=== PATIENT | female | born 1960 | race Caucasian/White ===

== ENCOUNTER 2020-07-26 18:45 | Observation (INO) | payer BC ==
--- NOTE | 2020-07-26 19:05 | ED ---
General Adult HPI - General Chief complaint: Recheck/Abnormal Lab/Rx Stated complaint: SOB Time Seen by Provider: 07/26/20 19:03 Source: patient Mode of arrival: ambulatory Limitations: no limitations - History of Present Illness Initial comments: 6-year-old female with history of heart failure presenting to the emergency department with a chief complaint of abnormal echo cardiogram. Patient states that she has been diagnosed with heart failure about 10 years ago after she contracted influenza. Patient states she was taking carvedilol but has stopped for the last several years. States that currently she is only taking [id number] vitamins and antihistamines. States over the last 9 days she developed dyspnea on exertion but no chest pain or pressure. States she had a chest x-ray and echocardiogram performed as an outpatient. States she was contacted by her primary care physician who advised her to go to the emergency department because she had an ejection fraction less than 20%. She denies any headaches, one sided weakness and paresthesias. She does report crackles, particularly in the morning when she wakes up. She denies any swelling of the legs. - Related Data Home Medications Medication Instructions Recorded Confirmed Calcium 1200mg + Vitamin D3 1 tab PO DAILY 07/26/20 07/26/20 1000units FLUoxetine HCL [PROzac] 20 mg PO DAILY 07/26/20 07/26/20 Fexofenadine/Pseudoephedrine 1 tab PO DAILY 07/26/20 07/26/20 [Anitra-D 12 Hour Tablet] Omeprazole Magnesium [PriLOSEC OTC] 20 mg PO DAILY 07/26/20 07/26/20 Allergies Allergy/AdvReac Type Severity Reaction Status Date / Time sulfamethoxazole Allergy Itching Verified 07/26/20 20:33 [From ] trimethoprim [From ] Allergy Itching Verified 07/26/20 20:33 Review of Systems ROS Statement: Those systems with pertinent positive or pertinent negative responses have been documented in the HPI. ROS Other: All systems not noted in ROS Statement are negative. Past Medical History Past Medical History: Heart Failure History of Any Multi-Drug Resistant Organisms: None Reported Past Surgical History: Orthopedic Surgery Additional Past Surgical History / Comment(s): thyroid Past Psychological History: No Psychological Hx Reported Smoking Status: Never smoker Past Alcohol Use History: Rare Past Drug Use History: None Reported General Exam Limitations: no limitations General appearance: alert, in no apparent distress Head exam: Present: atraumatic, normocephalic, normal inspection Eye exam: Present: normal appearance, PERRL, EOMI Pupils: Present: normal accommodation ENT exam: Present: normal exam, normal oropharynx, mucous membranes moist, TM's normal bilaterally, normal external ear exam Neck exam: Present: normal inspection, full ROM. Absent: tenderness Respiratory exam: Present: normal lung sounds bilaterally. Absent: respiratory distress, wheezes, rales, rhonchi, stridor Cardiovascular Exam: Present: regular rate, normal rhythm, normal heart sounds. Absent: systolic murmur, diastolic murmur GI/Abdominal exam: Present: soft. Absent: distended, tenderness, guarding, rebound Extremities exam: Present: normal inspection, full ROM, normal capillary refill. Absent: tenderness, pedal edema, joint swelling, calf tenderness Back exam: Present: normal inspection, full ROM. Absent: tenderness, CVA tenderness (R), CVA tenderness (L) Neurological exam: Present: alert, oriented X3 Psychiatric exam: Present: normal affect, normal mood. Absent: depressed, agitated Skin exam: Present: warm, dry, intact, normal color Course Vital Signs 07/26/20 07/26/20 18:48 20:41 Temperature 98.2 F Pulse Rate 117 H 107 H Respiratory 18 18 Rate Blood Pressure 115/74 115/85 O2 Sat by Pulse 98 96 Oximetry EKG Findings - EKG Comments: EKG Findings:: Sinus tachycardia, left axis deviation, prolonged QT. Ventricular rate 109, MD 138 and QRS 108, QTC 568. Medical Decision Making - Medical Decision Making 60-year-old female with history of heart failure presenting to the emergency department with a chief complaint of abnormal echocardiogram. I contacted [facility] but was not able to obtain the results of the echocardiogram. We did receive results of the chest x-ray which was incon clusive and there is a suspected pulmonary process without specifications. CBC is unremarkable. CMP reveals hypocalcemia of 7.9 which could explain the QT prolongation. Patient will be started on calcium gluconate. Patient is otherwise well-appearing. Stable vitals. Patient was discussed with who spoke with Dr. Wilson and he would like to have the patient did for telemetry. Patient did have a troponin of 0.025. Patient will be nothing by mouth. [employer] consulted. - Lab Data Result diagrams: 07/26/20 19:30 07/26/20 19:30 Lab Results 07/26/20 07/26/20 07/26/20 Range/Units 19:30 19:30 19:30 WBC 8.1 (3.8-10.6) k/uL RBC 3.89 (3.80-5.40) m/uL Hgb 11.0 L (11.4-16.0) gm/dL Hct 34.1 (34.0-46.0) % MCV 87.8 (80.0-100.0) fL MCH 28.4 (25.0-35.0) pg MCHC 32.4 (31.0-37.0) g/dL RDW 14.5 (11.5-15.5) % Plt Count 322 (150-450) k/uL MPV 8.3 Neutrophils % 62 % Lymphocytes % 29 % Monocytes % 4 % Eosinophils % 3 % Basophils % 1 % Neutrophils # 5.0 (1.3-7.7) k/uL Lymphocytes # 2.4 (1.0-4.8) k/uL Monocytes # 0.4 (0-1.0) k/uL Eosinophils # 0.2 (0-0.7) k/uL Basophils # 0.1 (0-0.2) k/uL Sodium 140 (137-145) mmol/L Potassium 3.5 (3.5-5.1) mmol/L Chloride 105 (98-107) mmol/L Carbon Dioxide 24 (22-30) mmol/L Anion Gap 11 mmol/L BUN 13 (7-17) mg/dL Creatinine 1.00 (0.52-1.04) mg/dL Est GFR (CKD-EPI)AfAm 71 (>60 ml/min/1.73 sqM) Est GFR (CKD-EPI)NonAf 62 (>60 ml/min/1.73 sqM) Glucose 130 H (74-99) mg/dL Calcium 7.9 L (8.4-10.2) mg/dL Magnesium 1.7 (1.6-2.3) mg/dL Total Bilirubin 0.5 (0.2-1.3) mg/dL AST 21 (14-36) U/L ALT 14 (4-34) U/L Alkaline Phosphatase 80 (38-126) U/L Troponin I 0.025 (0.000-0.034) ng/mL NT-Pro-B Natriuret Pep pg/mL Total Protein 7.2 (6.3-8.2) g/dL Albumin 4.0 (3.5-5.0) g/dL 07/26/20 Range/Units 19:30 WBC (3.8-10.6) k/uL RBC (3.80-5.40) m/uL Hgb (11.4-16.0) gm/dL Hct (34.0-46.0) % MCV (80.0-100.0) fL MCH (25.0-35.0) pg MCHC (31.0-37.0) g/dL RDW (11.5-15.5) % Plt Count (150-450) k/uL MPV Neutrophils % % Lymphocytes % % Monocytes % % Eosinophils % % Basophils % % Neutrophils # (1.3-7.7) k/uL Lymphocytes # (1.0-4.8) k/uL Monocytes # (0-1.0) k/uL Eosinophils # (0-0.7) k/uL Basophils # (0-0.2) k/uL Sodium (137-145) mmol/L Potassium (3.5-5.1) mmol/L Chloride (98-107) mmol/L Carbon Dioxide (22-30) mmol/L Anion Gap mmol/L BUN (7-17) mg/dL Creatinine (0.52-1.04) mg/dL Est GFR (CKD-EPI)AfAm (>60 ml/min/1.73 sqM) Est GFR (CKD-EPI)NonAf (>60 ml/min/1.73 sqM) Glucose (74-99) mg/dL Calcium (8.4-10.2) mg/dL Magnesium (1.6-2.3) mg/dL Total Bilirubin (0.2-1.3) mg/dL AST (14-36) U/L ALT (4-34) U/L Alkaline Phosphatase (38-126) U/L Troponin I (0.000-0.034) ng/mL NT-Pro-B Natriuret Pep 4180 pg/mL Total Protein (6.3-8.2) g/dL Albumin (3.5-5.0) g/dL Disposition Clinical Impression: Hypocalcemia, Shortness of breath, Prolonged Q-T interval on ECG Disposition: ADMITTED IP TO THIS HOSP Condition: Stable Is patient prescribed a controlled substance at d/c from ED?: No Time of Disposition: 21:10
[2020-07-26 19:51] LABS: Basophils # (A) 0.1 k/uL (0-0.2); Basophils % (A) 1 %; Eosinophils # (A) 0.2 k/uL (0-0.7); Eosinophils % (A) 3 %; HCT 34.1 % (34.0-46.0); Lymphocytes # (A) 2.4 k/uL (1.0-4.8); Lymphocytes % (A) 29 %; MCH 28.4 pg (25.0-35.0); MCHC 32.4 g/dL (31.0-37.0); MCV 87.8 fL (80.0-100.0); Mean Platelet Volume 8.3; Monocytes # (A) 0.4 k/uL (0-1.0); Monocytes % (A) 4 %; Neutrophils % (A) 62 %; Platelet Count 322 k/uL (150-450); RBC 3.89 m/uL (3.80-5.40); RDW 14.5 % (11.5-15.5); WBC 8.1 k/uL (3.8-10.6)
[2020-07-26 20:00] LABS: Calcium 7.9 mg/dL (8.4-10.2); Magnesium 1.7 mg/dL (1.6-2.3); Potassium 3.5 mmol/L (3.5-5.1); Total Bilirubin 0.5 mg/dL (0.2-1.3); Total Protein 7.2 g/dL (6.3-8.2)
[2020-07-26] MEDS ORDERED: CALCIUM GLUCONATE 1 GM in SODIUM CHLORIDE 0.9% 100 ML IVPB ONE (20:14)
[2020-07-26] MEDS ORDERED: NALOXONE 0.4 MG/ML 1 ML VIAL IV PRN (20:16)
[2020-07-26] MEDS ORDERED: HYDROmorphone 0.5 MG/0.5 ML SYRINGE IVP PRN (20:16)
[2020-07-26] MEDS ORDERED: ACETAMINOPHEN TAB 325 MG TAB PO PRN (20:16)
[2020-07-26] MEDS ORDERED: LORazepam 2 MG/ML INJ IV PRN (20:16)
--- NOTE | 2020-07-26 20:43 | XR ---
EXAMINATION: XR chest 2V DATE AND TIME: 07/26/2020 8:01 PM CLINICAL INDICATION: PHH; Chest Pain TECHNIQUE: PA and lateral COMPARISON: None FINDINGS: There is a subtle fine reticular pattern to appears to overlie the pulmonary vasculature bilaterally. This finding is subtle but can correlate with a clinical diagnosis of mild interstitial phase pulmon katelin edema. The lungs are otherwise well-expanded and clear bilaterally. The pleural spaces are negative. The cardiac silhouette is mildly enlarged. The remainder of the mediastinal silhouette is unremarkabl e. The skeletal structures and soft tissues are negative for acute findings. IMPRESSION: 1. Subtle interstitial radiographic pattern. 2. Mildly enlarged cardiac silhouette.
[2020-07-26] MEDS: SODIUM CHLORIDE 0.9% 1,000 ML IV SCH (20:45)
[2020-07-26 21:09] LABS: Partial Thromboplastin Time 22.2 sec (22.0-30.0); Prothrombin Time 10.5 sec (9.0-12.0)
--- NOTE | 2020-07-26 23:16 | P.HPIM ---
History of Present Illness H&P Date: 07/26/20 Chief Complaint: Acute severe cardiomyopathy, severe mitral regurgitation, s olinda baroneness 60-year-old female one of my office patient with past medical history of ALLERGY, along with GERD and mild osteoporosis who had also mild depression who developed to have significant shortness of breath for the last few weeks for the last 3 weeks apparently patient was diagnosed with cardiomyopathy about 10 years ago after contracted influenza virus she was taking Coreg and then stopped taking medication completely not taking any diuretics are beta rajendra. Patient presented to the office recently complaining of worsening dyspnea and shortness of breath with exertion she had loud murmur as well was referred for an echocardiogram result came back with ejection fraction of 15-20% only with severe mitral regurgitation. Patient is significantly symptomatic with no explained to why he had recurrent cardiomyopathy this time [facility] will be admitted seen cardiology and might need further intervention including transesophageal echocardiogram along with possible heart catheter. Patient also started on diuretics with furosemide along with Aldactone mild dose of lisinopril and back on metoprolol. Review of Systems CONSTITUTIONAL: Well-developed no acute respiratory distress. EYES: No icterus sclerae, no conjunctivitis. EARS, NOSE, MOUTH, THROAT, and FACE: No sore throat, lymphadenopathy, carotid bruits or deformity. RESPIRATORY: Mild dyspnea and shortness of breath with exertion. CARDIOVASCULAR: No CP, positive palpitation positive PND orthopnea no angina. GASTROINTESTINAL: No Abd pain, Nausea or vomiting, no Diarrhea or constipation, No GI Bleed, no distention or masses. GENITOURINARY: Negative for Hematuria or UTI, no kidney stones. INTEGUMENT/BREAST: Negative for any muscular injury with mild osteoarthritis.. HEMATOLOGIC/LYMPHATIC: Negative for bleed or purpura. MUSCULOSKELTAL: Negative for Myalgia or arthralgia. Slight edema NEURLOGICAL: No LOC, Sz or syncope, blurred vision dizziness or abnormality.. BEHAVIORAL/PSYCH: Negative. ENDOCRINE: Negative. Past Medical History Past Medical History: Heart Failure History of Any Multi-Drug Resistant Organisms: None Reported Past Surgical History: Orthopedic Surgery Additional Past Surgical History / Comment(s): thyroid Past Psychological History: No Psychological Hx Reported Smoking Status: Never smoker Past Alcohol Use History: Rare Past Drug Use History: None Reported Medications and Allergies Home Medications Medication Instructions Recorded Confirmed Type Calcium 1200mg + Vitamin D3 1 tab PO DAILY 07/26/20 07/26/20 History 1000units FLUoxetine HCL [PROzac] 20 mg PO DAILY 07/26/20 07/26/20 History Fexofenadine/Pseudoephedrine 1 tab PO DAILY 07/26/20 07/26/20 History [Anitra-D 12 Hour Tablet] Omeprazole Magnesium [PriLOSEC OTC] 20 mg PO DAILY 07/26/20 07/26/20 History Allergies Allergy/AdvReac Type Severity Reaction Status Date / Time sulfamethoxazole Allergy Itching Verified 07/26/20 20:33 [From ] trimethoprim [From ] Allergy Itching Verified 07/26/20 20:33 Physical Exam Vitals: Vital Signs Temp Pulse Resp BP Pulse Ox 07/26/20 20:41 107 H 18 115/85 96 07/26/20 18:48 98.2 F 117 H 18 115/74 98 Intake and Output 07/26/20 07/26/20 07/26/20 06:59 14:59 22:59 Other: Weight 69.4 kg General Appearance: Alert, cooperative, no distress, appears stated age. Neck HEENT: Supple, no lymphadenopathy, no thyroid enlargement, no carotid bruits. Lungs: Clear to auscultation without crackles or wheezes no rhonchi, no deformity. Chest Wall: Chest wall normal expansion with deep inspiration no tenderness and no deformity was found on exam, no costochondral pain or discomfort. Heart: IRRegular rate and rhythm, S1, S2 normal, without murmur heard in the attacks along with the left second coastal space. Back: Symmetric, no curvature, ROM normal, no CVA tenderness. Abdomen: Soft, non-tender, bowel sounds active all four quadrants, no masses, no organomegaly. Extremities: Extremities normal, atraumatic, no cyanosis or edema. Pulses: 2+ and symmetric. Skin: Skin color, texture, tugor normal, no rashes or lesions. Neurologic: Alert oriented x3 cranial nerves II through XII intact, no motor deficit, no abnormal balance or gait. Results CBC & Chem 7: 07/26/20 19:30 07/26/20 19:30 Labs: Abnormal Lab Results - Last 24 Hours (Table) 07/26/20 07/26/20 Range/Units 19:30 19:30 Hgb 11.0 L (11.4-16.0) gm/dL Glucose 130 H (74-99) mg/dL Calcium 7.9 L (8.4-10.2) mg/dL Thrombosis Risk Factor Assmnt - DVT/VTE Prophylaxis DVT/VTE Prophylaxis: Pharmacologic Prophylaxis ordered, Mechanical Prophylaxis ordered Assessment and Plan Assessment: 1 acute possible nonischemic severe cardiopathy: Etiology is not clear, patient had history of cardiomyopathy over 10 years ago was related to viral infection post influenza exposure. Patient has been off all treatment for the last few years successfully with no major abnormality until relapse few weeks ago de veloped to have significant shortness of breath with minimum exertion along with mild edema according to patient that happened shortly after she stumbled and had a fall without syncope traumatize the right side of her chest wall area. Also patient had no exposure to Covid. 2 severe valvular heart disease: Not a clear whether patient had rupture mitral valve Chordae, patient might benefit from going for transesophageal echocardiogram for better assessment of the valve as well. 3 mild tachycardia: Patient will benefit from beta rajendra will be on metoprolol 12.5 g twice a day titrate dose as needed. 4 hyperglycemia: Check with sliding scales coverage and be done. 5 severe dyspnea and shortness of breath: Most likely secondary to cardiomyopathy and valvular heart disease. 6 GI prophylaxis: Patient will be on Pepcid 20 mg daily. 7 DVT prophylaxis: Patient be on Lovenox 40 mg subcutaneous daily. CODE STATUS: Full code. Admit patient to the inpatient status for more than 2 night stay.
[2020-07-26] MEDS: METOPROLOL TARTRATE 12.5 MG TAB PO SCH (23:32)
[2020-07-27] MEDS ORDERED: FUROSEMIDE 20 MG TAB PO SCH (09:00)
[2020-07-27] MEDS: METOPROLOL TARTRATE 12.5 MG TAB PO SCH ×2 (09:53→21:25)
[2020-07-27] MEDS: ENOXAPARIN 40 MG/0.4 ML SYRINGE SQ SCH (09:53)
[2020-07-27] MEDS: SPIRONOLACTONE 25 MG TAB PO SCH (09:53)
[2020-07-27] MEDS: FLUoxetine HCL 20 MG CAP PO SCH (09:53)
[2020-07-27] MEDS: lisinopriL 5 MG TAB PO SCH (09:55)
[2020-07-27] MEDS: PANTOPRAZOLE 40 MG TABLET PO SCH (09:55)
[2020-07-27] MEDS ORDERED: FUROSEMIDE 10 MG/ML 2 ML VIAL IV ONE (10:33)
[2020-07-27] MEDS ORDERED: ASPIRIN 325 MG TAB PO STA (10:35)
[2020-07-27] MEDS ORDERED: ATORVASTATIN 80 MG TAB PO STA (10:35)
[2020-07-27] MEDS ORDERED: SODIUM CHLORIDE 0.9% 1,000 ML in EMPTY BAG 1 BAG IV ONE (10:35)
[2020-07-27] MEDS ORDERED: NITROGLYCERIN SL TABS 0.4 MG TAB SUBLINGUAL PRN (10:35)
[2020-07-27] MEDS ORDERED: VERAPAMIL 2.5 MG/ML 2 ML AMP ONE (11:12)
[2020-07-27] MEDS ORDERED: HEPARIN SODIUM 1,000 UN/ML (10ML VL) ONE (11:28)
--- NOTE | 2020-07-27 11:32 | ECHOF ---
Referral Reason:lv ands mitral valve MEASUREMENTS -------- HEIGHT: 157.5 cm WEIGHT: 69.4 kg BP: 109/82 RVIDd: 3.3 cm (< 3.3) IVSd: 1.2 cm (0.6 - 1.1) LVIDd: 6.1 cm (3.9 - 5.3) LVPWd: 1.2 cm (0.6 - 1.1) IVSs: 1.2 cm LVIDs: 5.6 cm LVPWs: 1.5 cm LAESV Index (A-L): 27.68 ml/m Ao Diam: 3.0 cm (2.0 - 3.7) AV Cusp: 2.0 cm (1.5 - 2.6) MV EXCURSION: 12.842 mm (> 18.000) MV EF SLOPE: 33 mm/s (70 - 150) EPSS: 2.8 cm RAP: 20.00 mmHg RVSP: 57.66 mmHg FINDINGS -------- Sinus rhythm. This was a technically adequate study. Limited Study The left ventricle is moderately dilated. There is mild concentric left ventricular hypertrophy. There is severe global hypokinesis of LV . Overall left ventricular systolic function is severely i mpaired with, an EF < 20%. [id number] mitral regurgitation is present. Moderate to severe tricuspid regurgitation present. There is moderate to severe pulmonary hypertens ion. The right ventricular systolic pressure, as measured by Doppler, is 57.66mmHg. The aortic root size is normal. The inferior vena cava is dilated with poor inspiratory collapse which is consistent with estimated r ight atrial pressure of 20 mmHg. CONCLUSIONS -------- 1. The left ventricle is moderately dilated. 2. There is mild concentric left ventricular hypertrophy. 3. There is severe global hypokinesis of LV . 4. Overall left ventricular systolic function is severely impaired with, an EF < 20%. 5. Ugrhoxla-mu-fjysdv mitral regurgitation is present. 6. Moderate to severe tricuspid regurgitation present. 7. There is moderate to severe pulmonary hypertension. 8. The right ventricular systolic pressure, as measured by Doppler, is 57.66mmHg. 9. The inferior vena cava is dilated with poor inspiratory collapse which is consistent with estimate d right atrial pressure of 20 mmHg. COMPUTER SYSTEM SPECIALIST: Jesenia Mcguire [facility] [[email or web address]]
[2020-07-27] MEDS ORDERED: ASPIRIN 325 MG TAB ONE (11:34)
[2020-07-27] MEDS ORDERED: ASPIRIN 325 MG TAB PO ONE (11:36)
[2020-07-27] MEDS ORDERED: IV FLUID CONTINUATION 950 ML IV ONE (11:36)
[2020-07-27] MEDS: MIDAZOLAM 2 MG/2 ML VIAL IVP ONE ×2 (11:37→11:42)
[2020-07-27] MEDS ORDERED: LIDOCAINE 1% INJ 10MG/ML (20 ML MDV) SQ ONE ×2 (11:38)
[2020-07-27] MEDS: VERAPAMIL SYRINGE (5 MG/10 ML) INTRAARTER ONE ×2 (11:41→11:53)
[2020-07-27] MEDS ORDERED: FUROSEMIDE 10 MG/ML 4 ML VIAL ONE (11:46)
[2020-07-27] MEDS ORDERED: FUROSEMIDE 10 MG/ML 4 ML VIAL IVP ONE (11:47)
[2020-07-27] MEDS ORDERED: IOPAMIDOL-370 125ML BTL INJ ONE (11:53)
--- NOTE | 2020-07-27 14:09 | P.CRDCN ---
History of Present Illness History of present illness: HISTORY OF PRESENTING ILLNESS This is a pleasant 60-year-old female past medical history significant for viral cardiomyopathy in 2007 according to the patient returned to normal in 2017. She does not follow regularly the office with a tourist escort. She last saw Dr. Robin in 2017. At that time she had an echocardiogram that revealed preserved LV systolic function with ejection fraction 55%, mitral valve was normal with mild regurgitation. At that time she was on Coreg and lisinopril she has since discontinued. We have been asked to see in consultation for heart failure. She states for the previous 9-10 days she has been noticing increased shortness of breath and some exertional chest discomfort. More specifically at night when she lays down to go to sleep is when she notices she is short of breath and she feels like she is "drowning "she was sent for an outpatient echocardiogram and advice of her PCP yesterday revealing severely impaired LV systolic function with severe mitral regurgitation. Repeat limited study today reveals severely impaired and dilated LV with ejection fraction less than 20%, moderate to severe mitral regurgitation, moderate to severe tricuspid regurgitation and moderate to severe pulmonary hypertension with RVSP of 57 mmHg. DIAGNOSTICS EKG reveals sinus tachycardia heart rate of 109, biatrial enlargement, left axis deviation, T wave inversions in the high lateral leads and flat T waves inferiorly. Chest xray indicates subtle mild interstitial phase pulmonary edema. Laboratory reviewed, CBC unremarkable, sodium 140, potassium 3.5, creatinine 1, magnesium 1.7, troponin negative 2, NT proBNP 4180. She takes no daily cardiac medications. REVIEW OF SYSTEMS At the time of my exam: CONSTITUTIONAL: Denies fever or chills. CARDIOVASCULAR: Complains of orthopnea and shortness of breath. Denies chest pain, PND or palpitations. RESPIRATORY: Denies cough. GASTROINTESTINAL: Denies abdominal pain, diarrhea, constipation, nausea or vomiting. MUSCULOSKELETAL: Denies myalgias. NEUROLOGIC: Denies numbness, tingling or weakness. ENDOCRINE: Denies fatigue, weight change, polydipsia or polyurina. GENITOURINARY: Denies burning, hematuria or urgency with micturation. HEMATOLOGIC: Denies history of anemia or bleeding. PHYSICAL EXAMINATION Blood pressure 109/82 heart rate 85 afebrile and maintaining oxygen saturation on room air. CONSTITUTIONAL: No apparent distress. HEENT: Head is normocephalic. Pupils are equal, round. Sclerae anicteric. Mucous membranes of the mouth are moist. No JVD. No carotid bruit. CHEST EXAMINATION: Lungs are clear to auscultation. No chest wall tenderness is noted on palpation or with deep breathing. HEART EXAMINATION: Regular rate and rhythm. S1, S2 heard. Soft systolic ejection murmur at the apex, no gallops or rub. ABDOMEN: Soft, nontender. Positive bowel sounds. EXTREMITIES: 2+ peripheral pulses, no lower extremity edema and no calf tenderness. NEUROLOGIC EXAMINATION: Patient is awake, alert and oriented x3. 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 I have discussed the risks, benefits and alternative therapies for the above-mentioned procedure and for both sedation/analgesia as well as necessary blood product administration, if indicated, as they pertain to this patient. The patient has indicated understanding and acceptance of the risks and procedures discussed. Questions have been answered appropriately and she is agreeable to move forward with the above-stated procedures. Give 1 dose of Lasix IV 20 mg now and continue 3 times a day. Agree with Aldactone, Lopressor and lisinopril as ordered by the PCP. Check viral titers. Further recommendations to follow based upon clinical course. Thank you kindly for this consultation. Nurse Practitioner note has been reviewed, I agree with a documented findings and plan of care. Patient was seen and examined. Past Medical History Past Medical History: Heart Failure History of Any Multi-Drug Resistant Organisms: None Reported Past Surgical History: Orthopedic Surgery Additional Past Surgical History / Comment(s): thyroid Past Psychological History: No Psychological Hx Reported Smoking Status: Never smoker Past Alcohol Use History: Rare Past Drug Use History: None Reported Medications and Allergies Home Medications Medication Instructions Recorded Confirmed Type Calcium 1200mg + Vitamin D3 1 tab PO DAILY 07/26/20 07/26/20 History 1000units FLUoxetine HCL [PROzac] 20 mg PO DAILY 07/26/20 07/26/20 History Fexofenadine/Pseudoephedrine 1 tab PO DAILY 07/26/20 07/26/20 History [Anitra-D 12 Hour Tablet] Omeprazole Magnesium [PriLOSEC OTC] 20 mg PO DAILY 07/26/20 07/26/20 History Allergies Allergy/AdvReac Type Severity Reaction Status Date / Time sulfamethoxazole Allergy Itching Verified 07/26/20 20:33 [From ] trimethoprim [From ] Allergy Itching Verified 07/26/20 20:33 Physical Exam Vitals: Vital Signs Temp Pulse Resp BP Pulse Ox 07/27/20 05:41 98.6 F 85 18 109/82 95 07/27/20 02:59 98.7 F 91 18 113/78 96 07/27/20 02:00 18 07/26/20 23:30 105 H 18 125/91 98 07/26/20 20:41 107 H 18 115/85 96 07/26/20 18:48 98.2 F 117 H 18 115/74 98 Intake and Output 07/26/20 07/27/20 07/27/20 22:59 06:59 14:59 Other: Weight 69.4 kg Results 07/26/20 19:30 07/26/20 19:30 Cardiac Enzymes 07/26/20 07/26/20 07/27/20 Range/Units 19:30 19:30 00:22 AST 21 (14-36) U/L Troponin I 0.025 0.020 (0.000-0.034) ng/mL Coagulation 07/26/20 Range/Units 20:45 PT 10.5 (9.0-12.0) sec APTT 22.2 (22.0-30.0) sec CBC 07/26/20 Range/Units 19:30 WBC 8.1 (3.8-10.6) k/uL RBC 3.89 (3.80-5.40) m/uL Hgb 11.0 L (11.4-16.0) gm/dL Hct 34.1 (34.0-46.0) % Plt Count 322 (150-450) k/uL Comprehensive Metabolic Panel 07/26/20 Range/Units 19:30 Sodium 140 (137-145) mmol/L Potassium 3.5 (3.5-5.1) mmol/L Chloride 105 (98-107) mmol/L Carbon Dioxide 24 (22-30) mmol/L BUN 13 (7-17) mg/dL Creatinine 1.00 (0.52-1.04) mg/dL Glucose 130 H (74-99) mg/dL Calcium 7.9 L (8.4-10.2) mg/dL AST 21 (14-36) U/L ALT 14 (4-34) U/L Alkaline Phosphatase 80 (38-126) U/L Total Protein 7.2 (6.3-8.2) g/dL Albumin 4.0 (3.5-5.0) g/dL Current Medications Generic Name Dose Route Start Last Admin Trade Name Freq PRN Reason Stop Dose Admin Acetaminophen 650 mg 07/26/20 20:16 Acetaminophen Tab 325 Mg Tab PO Q6HR PRN Mild Pain or Fever > 100.5 Enoxaparin Sodium 40 mg 07/27/20 09:00 Enoxaparin 40 Mg/0.4 Ml Syringe SQ DAILY NATALIA Fluoxetine HCl 20 mg 07/27/20 09:00 Fluoxetine Hcl 20 Mg Cap PO DAILY NATALIA Furosemide 20 mg 07/27/20 09:00 Furosemide 20 Mg Tab PO DAILY NATALIA Hydromorphone HCl 0.5 mg 07/26/20 20:16 Hydromorphone 0.5 Mg/0.5 Ml Syringe IVP Q3HR PRN Moderate Pain Sodium Chloride 1,000 mls @ 20 mls/hr 07/26/20 20:30 07/26/20 20:45 Saline 0.9% IV 20 mls/hr .Q24H NATALIA Administration Lisinopril 5 mg 07/27/20 09:00 Lisinopril 5 Mg Tab PO DAILY NATALIA Lorazepam 0.5 mg 07/26/20 20:16 Lorazepam 2 Mg/Ml Inj IV Q6HR PRN Anxiety Metoprolol Tartrate 12.5 mg 07/26/20 22:45 07/26/20 23:32 Metoprolol Tartrate 12.5 Mg Tab PO 12.5 mg BID NATALIA Administration Naloxone HCl 0.2 mg 07/26/20 20:16 Naloxone 0.4 Mg/Ml 1 Ml Vial IV Q2M PRN Opioid Reversal Pantoprazole Sodium 40 mg 07/27/20 09:00 Pantoprazole 40 Mg Tablet PO DAILY NATALIA Spironolactone 12.5 mg 07/27/20 09:00 Spironolactone 25 Mg Tab PO DAILY NATALIA Intake and Output 07/26/20 07/27/20 07/27/20 22:59 06:59 14:59 Other: Weight 69.4 kg 07/26/20 19:30 07/26/20 19:30
--- NOTE | 2020-07-27 14:15 | P.PN ---
Subjective Progress Note Date: 07/27/20 HISTORY OF PRESENT ILLNESS 60-year-old female one of my office patient with past medical history of ALLERGY, along with GERD and mild osteoporosis who had also mild depression who developed to have significant shortness of breath for the last few weeks for the last 3 weeks apparently patient was diagnosed with cardiomyopathy about 10 years ago after contracted influenza virus she was taking Coreg and then stopped taking medication completely not taking any diuretics are beta rajendra. Patient presented to the office recently complaining of worsening dyspnea and shortness of breath with exertion she had loud murmur as well was referred for an echocardiogram result came back with ejection fraction of 15-20% only with severe mitral regurgitation. Patient is significantly symptomatic with no explained to why he had recurrent cardiomyopathy this time [facility] will be admitted seen cardiology and might need further intervention including transesophageal echocardiogram along with possible heart catheter. Patient also started on diuretics with furosemide along with Aldactone mild dose of lisinopril and back on metoprolol. 07/27: Limited echocardiogram performed which revealed EF of less than 20%, mild concentric left ventricular hypertrophy, moderate to severe mitral regurgitation, moderate to severe tricuspid regurgitation, severe pulmonary hypertension. Cardiology evaluated the patient and performed heart catheterization that showed no significant coronary artery disease. Patient has been afebrile, heart rate 85, blood pressure 109/82, pulse ox 95% on room air.: 19 was negative. Repeat troponin 0.020. Patient was started on Lasix 20 mg IV every 8 hours by cardiology. Anticipate monitoring patient overnight and possible discharge in the next 24-48 hours. REVIEW OF SYSTEMS CONSTITUTIONAL: Well-developed no acute respiratory distress. EYES: No icterus sclerae, no conjunctivitis. EARS, NOSE, MOUTH, THROAT, and FACE: No sore throat, lymphadenopathy, carotid bruits or deformity. RESPIRATORY: Mild dyspnea with exertion. Denies shortness of breath at rest. CARDIOVASCULAR: No CP, positive palpitation positive PND orthopnea no angina. GASTROINTESTINAL: No Abd pain, Nausea or vomiting, no Diarrhea or constipation, No GI Bleed, no distention or masses. GENITOURINARY: Negative for Hematuria or UTI, no kidney stones. INTEGUMENT/BREAST: Negative for any muscular injury with mild osteoarthritis.. HEMATOLOGIC/LYMPHATIC: Negative for bleed or purpura. MUSCULOSKELTAL: Negative for Myalgia or arthralgia. Slight edema NEURLOGICAL: No LOC, Sz or syncope, blurred vision dizziness or abnormality.. BEHAVIORAL/PSYCH: Negative. ENDOCRINE: Negative. PHYSICAL EXAMINATION General Appearance: Alert, cooperative, no distress, appears stated age. Patient resting comfortably in bed. No acute distress noted. Neck HEENT: Supple, no lymphadenopathy, no thyroid enlargement, no carotid bruits. Lungs: Clear to auscultation without crackles or wheezes no rhonchi, no deformity. Chest Wall: Chest wall normal expansion with deep inspiration no tenderness and no deformity was found on exam, no costochondral pain or discomfort. Heart: IRRegular rate and rhythm, S1, S2 normal, without murmur heard in the attacks along with the left second coastal space. Back: Symmetric, no curvature, ROM normal, no CVA tenderness. Abdomen: Soft, non-tender, bowel sounds active all four quadrants, no masses, no organomegaly. Extremities: Extremities normal, atraumatic, no cyanosis or edema. Pulses: 2+ and symmetric. Skin: Skin color, texture, tugor normal, no rashes or lesions. Neurologic: Alert oriented x3 cranial nerves II through XII intact, no motor deficit, no abnormal balance or gait. 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 Patient has been off all treatment for the last few years successfully with no major abnormality until relapse few weeks ago developed to have significant shortness of breath with minimum exertion along with mild edema according to patient that happened shortly after she stumbled and had a fall without syncope traumatize the right side of her chest wall area. Also patient had no exposure to Covid. Heart catheterization reported with no significant coronary artery disease. Continue Lasix 20 mg IV every 8 hours, Aldactone 12.5 mg daily, Lopressor 12.5 mg twice daily. 2 severe valvular heart disease. Rupture mitral valve Chordae has been ruled out by cardiology. 3 mild tachycardia: Patient will benefit from beta rajendra will be on metoprolol 12.5 g twice a day titrate dose as needed. 4 hyperglycemia: Check with sliding scales coverage and be done. 5 severe dyspnea and shortness of breath: Most likely secondary to car diomyopathy and valvular heart disease. 6 GI prophylaxis: Patient will be on Pepcid 20 mg daily. 7 DVT prophylaxis: Patient be on Lovenox 40 mg subcutaneous daily. CODE STATUS: Full code. DISCHARGE PLAN HOME in the next 24-48 hours. Impression and plan of care have been directed as dictated by the signing physician. Patricia Milligan nurse practitioner acting as scribe for signing physician. Objective - Vital Signs Vital signs: Vital Signs Temp 98.6 F 07/27/20 05:41 Pulse 85 07/27/20 05:41 Resp 18 07/27/20 05:41 BP 109/82 07/27/20 05:41 Pulse Ox 95 07/27/20 05:41 Intake & Output 07/26/20 07/27/20 07/27/20 18:59 06:59 18:59 Weight 69.4 kg - Labs CBC & Chem 7: 07/26/20 19:30 07/26/20 19:30 Labs: Abnormal Lab Results - Last 24 Hours (Table) 07/26/20 07/26/20 Range/Units 19:30 19:30 Hgb 11.0 L (11.4-16.0) gm/dL Glucose 130 H (74-99) mg/dL Calcium 7.9 L (8.4-10.2) mg/dL
[2020-07-27] MEDS ORDERED: fentaNYL (PF) 50 MCG/ML 2 ML AMP ONE (15:25)
[2020-07-27] MEDS ORDERED: IV FLUID CONTINUATION 1,000 ML IV ONE (15:28)
[2020-07-27] MEDS ORDERED: BENZOCAINE SPRAY 1 CAN TOPICAL ONE (15:44)
[2020-07-27] MEDS ORDERED: fentaNYL (PF) 50 MCG/ML 2 ML AMP IV ONE ×3 (15:44)
[2020-07-27] MEDS ORDERED: MIDAZOLAM 2 MG/2 ML VIAL IV ONE ×5 (15:44→15:48)
--- NOTE | 2020-07-27 15:59 | CC ---
CARDIAC CATHETERIZATION REPORT DATE OF SERVICE: 07/27/2020 PROCEDURE: Left heart catheterization and coronary angiography. PERFORMED BY: Dr. Aleisha Rhodes. Moderate conscious sedation time was 17 minutes. Patient was administered Versed. Oxygen saturation, hemodynamics and EKG were monitored closely. CLINICAL INFORMATION: Mrs. Jocelyn Solis is a 60-year-old lady, a patient of Dr. Reardon. She was diagnosed with a probable cardiomyopathy more than 10 years ago and at that time she was placed on appropriate medications, but apparently her LV function improved. This is information from the patient not verified. She came to see Dr. Reardon with complaints of increasing shortness of breath of nearly 10 day's duration. Symptoms included exertion, shortness of breath even with mild day-to-day activity. Echo revealed ejection fraction of less than 20% with increased LV size and global decrease in contractility with severe mitral regurgitation, but no structural abnormality of the mitral valve on a transthoracic echo. I recommended coronary angiography to rule out obstructive CAD and also a transesophageal echo to look for any mitral valve abnormality structurally. Discussed with the patient at length. Explained her the rationale, risks, benefits, and options. The patient understood all details and wished to proceed with the procedure. PROCEDURE NOTE: Under local anesthesia and strict aseptic precautions a 6-Yakut introducer was placed in the right radial artery. Using a JL3.5 and JR4 catheters, I performed coronary angiography and checked LV pressures with the same right catheter but did not do an LV gram. The sheath was then taken out and TR band applied as per protocol with a saturation the fingers of the hand of 92%. Same as baseline. The patient tolerated procedure well without complication. Results were discussed with the patient as well as her son, Jose D by phone. CARDIAC CATHETERIZATION FINDINGS: Left ventricular end-diastolic pressure was about 24 mmHg without any gradient across the aortic valve. CORONARY ANGIOGRAPHY FINDINGS: RIGHT CORONARY ARTERY: Large dominant vessel. No significant disease distally bifurcates into a large PDA and a good-sized PLV. No significant disease only minor irregularities noted. LEFT MAIN CORONARY ARTERY: Short patent disease-free vessel that bifurcates into LAD and circumflex. LEFT ANTERIOR DESCENDING CORONARY ARTERY: Good caliber vessel, extends along the anterior wall, gives off septal and diagonal branches. No significant disease. Distal 1/4 is diffusely diseased. LEFT POSTERIOR CIRCUMFLEX CORONARY ARTERY: Nondominant vessel gives off 2 obtuse marginal branches, has minor irregularities, no significant disease. LEFT VENTRICULOGRAM: Left ventriculogram was not performed. FINAL IMPRESSION: This patient has a right dominant system. Elevated filling pressures. No gradient across the aortic valve and no significant obstructive CAD. RECOMMENDATIONS: Findings were discussed with the patient and her son. We will optimize her heart failure management. I will also obtain a transesophageal echo today to look at the mitral valve structurally to explain for mitral regurgitation. The patient will have the procedure performed later on today. MMODL / IJN: [id number] /
--- NOTE | 2020-07-27 17:39 | P.TEE ---
Description of Procedure(s): Procedure performed: Transesophageal Echocardiogram with color flow doppler, pulsed wave doppler and continuous wave doppler, moderate conscious sedation Moderate conscious sedation: Moderate conscious sedation was supplied with direct supervision of myself using Versed and Fentanyl. Complications: none Indications: Moderate to severe mitral regurgitation History: Patient is a pleasant 60-year-old female with a history of prior nonischemic cardiomyopathy with recovered ejection fraction who has been having dyspnea on exertion over the last 10 days and had an echocardiogram by her PCP that showed severely decreased systolic function, ejection fraction less than 20% and moderate to severe mitral regurgitation. Due to concern of moderate to severe mitral regurgitation, recommendation was for a TINY. PROCEDURE: After the risks, benefits and alternatives of the above mentioned procedure was explained in detail with the patient, informed consent was obtained. Patient was brought to the lab in a fasting state. Patient was given IV Versed and Fentanyl for sedation. The throat was sprayed with Hurricane to anesthetize the throat. A lubricated Omni probe was then introduced into the esophagus and stomach and multiple views were obtained. 2D echo with color flow doppler, pulsed wave doppler and continuous wave doppler was utilized. Agitated saline bubbles were injected to assess for any intra-atrial shunt. The probe was then removed. Patient tolerated the procedure well. Patient was transferred to the post procedure area in stable and satisfactory condition. FINDINGS: 1. The aortic valve is tricuspid and has normal function with trace aortic insufficiency. 2. The mitral valve appears be normal mitral valve annulus dilation. There is moderate secondary mitral regurgitation secondary to left ventricular dilation. EROA of 25mm2 by PISA, systolic blunting of pulmonary veins, consistent with only moderate mitral regurgitation. 3. Tricuspid valve appears to be normal with trace tricuspid regurgitation. 4. The interatrial septum is intact. No evidence of PFO. 5. Left atrial appendage is free of clot. 6. Left ventricle is dilated with global hypokinesis and an ejection fraction approximately 10%.]
[2020-07-27] MEDS: FUROSEMIDE 10 MG/ML 2 ML VIAL IV SCH ×2 (20:00→23:04)
[2020-07-27] MEDS: SODIUM CHLORIDE 0.9% 1,000 ML IV SCH (20:01)
[2020-07-28 06:59] LABS: Calcium 7.3 mg/dL (8.4-10.2)
[2020-07-28 07:00] LABS: Potassium 4.2 mmol/L (3.5-5.1)
[2020-07-28] MEDS: FUROSEMIDE 10 MG/ML 2 ML VIAL IV SCH (09:27)
[2020-07-28] MEDS: METOPROLOL TARTRATE 12.5 MG TAB PO SCH (09:32)
[2020-07-28] MEDS: SPIRONOLACTONE 25 MG TAB PO SCH (09:32)
[2020-07-28] MEDS: PANTOPRAZOLE 40 MG TABLET PO SCH (09:32)
[2020-07-28] MEDS: FLUoxetine HCL 20 MG CAP PO SCH (09:32)
[2020-07-28] MEDS: lisinopriL 5 MG TAB PO SCH (09:33)
[2020-07-28] MEDS: ENOXAPARIN 40 MG/0.4 ML SYRINGE SQ SCH (09:33)
[2020-07-28 09:57] VITALS: TEMP 98
--- NOTE | 2020-07-28 11:59 | P.PN ---
Subjective Progress Note Date: 07/28/20 60-year-old female one of my office patient with past medical history of ALLERGY, along with GERD and mild osteoporosis who had also mild depression who developed to have significant shortness of breath for the last few weeks for the last 3 weeks apparently patient was diagnosed with cardiomyopathy about 10 years ago after contracted influenza virus she was taking Coreg and then stopped taking medication completely not taking any diuretics are beta rajendra. Patient presented to the office recently complaining of worsening dyspnea and shortness of breath with exertion she had loud murmur as well was referred for an echocardiogram result came back with ejection fraction of 15-20% only with severe mitral regurgitation. Patient is significantly symptomatic with no explained to why he had recurrent cardiomyopathy this time patient was sent to [facility] department will be admitted seen cardiology and might need further intervention including transesophageal echocardiogram along with possible heart catheter. Patient also started on diuretics with furosemide along with Aldactone mild dose of lisinopril and back on metoprolol. 07/27: Limited echocardiogram performed which revealed EF of less than 20%, mild concentric left ventricular hypertrophy, moderate to severe mitral regurgitation, moderate to severe tricuspid regurgitation, severe pulmonary hypertension. Cardiology evaluated the patient and performed heart catheterization that showed no significant coronary artery disease. Patient has been afebrile, heart rate 85, blood pressure 109/82, pulse ox 95% on room air.: 19 was negative. Repeat troponin 0.020. Patient was started on Lasix 20 mg IV every 8 hours by cardiology. Anticipate monitoring patient overnight and possible discharge in the next 24-48 hours. 07/28: Patient is found sitting up in bed in no acute distress. She is anxious to go home. The patient states that she is not having any shortness of breath was able to sleep through the night. Patient has no bilateral pedal edema noted. She is not coughing. Patient had a TINY yesterday which showed moderate secondary mitral regurgitation secondary to left ventricular dilatation. An EF of 10% REVIEW OF SYSTEMS CONSTITUTIONAL: Well-developed no acute respiratory distress. EYES: No icterus sclerae, no conjunctivitis. EARS, NOSE, MOUTH, THROAT, and FACE: No sore throat, lymphadenopathy, carotid bruits or deformity. RESPIRATORY: Mild dyspnea with exertion. Denies shortness of breath at rest. CARDIOVASCULAR: No CP, positive palpitation positive PND orthopnea no angina. GASTROINTESTINAL: No Abd pain, Nausea or vomiting, no Diarrhea or constipation, No GI Bleed, no distention or masses. GENITOURINARY: Negative for Hematuria or UTI, no kidney stones. INTEGUMENT/BREAST: Negative for any muscular injury with mild osteoarthritis.. HEMATOLOGIC/LYMPHATIC: Negative for bleed or purpura. MUSCULOSKELTAL: Negative for Myalgia or arthralgia. Slight edema NEURLOGICAL: No LOC, Sz or syncope, blurred vision dizziness or abnormality.. BEHAVIORAL/PSYCH: Negative. ENDOCRINE: Negative. PHYSICAL EXAMINATION General Appearance: Alert, cooperative, no distress, appears stated age. Patient resting comfortably in bed. No acute distress noted. Neck HEENT: Supple, no lymphadenopathy, no thyroid enlargement, no carotid bruits. Lungs: Clear to auscultation without crackles or wheezes no rhonchi, no deformity. Chest Wall: Chest wall normal expansion with deep inspiration no tenderness and no deformity was found on exam, no costochondral pain or discomfort. Heart: IRRegular rate and rhythm, S1, S2 normal, without murmur heard in the attacks along with the left second coastal space. Back: Symmetric, no curvature, ROM normal, no CVA tenderness. Abdomen: Soft, non-tender, bowel sounds active all four quadrants, no masses, no organomegaly. Extremities: Extremities normal, atraumatic, no cyanosis or edema. Pulses: 2+ and symmetric. Skin: Skin color, texture, tugor normal, no rashes or lesions. Neurologic: Alert oriented x3 cranial nerves II through XII intact, no motor deficit, no abnormal balance or gait. 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 Patient has been off all treatment for the last few years successfully with no major abnormality until relapse few weeks ago developed to have significant shortness of breath with minimum exertion along with mild edema according to patient that happened shortly after she stumbled and had a fall without syncope traumatize the right side of her chest wall area. Also patient had no exposure to Covid. Heart catheterization reported with no significant coronary artery disease. Continue Lasix 20 mg IV every 8 hours, Aldactone 12.5 mg daily, Lopressor 12.5 mg twice daily. 2 severe valvular heart disease. Rupture mitral valve Chordae has been ruled out by cardiology. 3 mild tachycardia: Patient will benefit from beta rajendra will be on metoprolol 12.5 g twice a day titrate dose as needed. 4 hyperglycemia: Check with sliding scales coverage and be done. 5 severe dyspnea and shortness of breath: Most likely secondary to cardiomyopathy and valvular heart disease. 6 GI prophylaxis: Patient will be on Pepcid 20 mg daily. 7 DVT prophylaxis: Patient be on Lovenox 40 mg subcutaneous daily. CODE STATUS: Full code. DISCHARGE PLAN HOME in the next 24-48 hours. Impression and plan of care have been directed as dictated by the signing physician. Elaine Garcia nurse practitioner acting as scribe for signing physician. Objective - Vital Signs Vital signs: Vital Signs Temp 98 F 07/28/20 08:20 Pulse 83 07/28/20 08:20 Resp 18 07/28/20 08:20 BP 92/61 07/28/20 08:20 Pulse Ox 95 07/28/20 08:20 Intake & Output 07/27/20 07/28/20 07/28/20 18:59 06:59 18:59 Intake Total 630 10 714 Output Total 400 600 Balance 230 -590 714 Weight 67.8 kg Intake: IV 150 10 0.9 10 Oral 480 714 Output: Urine 400 600 Other: Voiding Method Toilet # Voids 1 - Labs CBC & Chem 7: 07/26/20 19:30 07/28/20 05:56 Labs: Abnormal Lab Results - Last 24 Hours (Table) 07/28/20 Range/Units 05:56 Carbon Dioxide 31 H (22-30) mmol/L Creatinine 1.12 H (0.52-1.04) mg/dL Glucose 100 H (74-99) mg/dL Calcium 7.3 L (8.4-10.2) mg/dL
[2020-07-28 12:49] VITALS: BP 85/56; PULSE 66; RESP 17
--- NOTE | 2020-07-28 13:30 | P.PN ---
Subjective HISTORY OF PRESENTING ILLNESS This is a pleasant 60-year-old female past medical history significant for viral cardiomyopathy in 2006 according to the patient returned to normal in 2017. 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 She last saw Dr. Robin in 2017. At that time she had an echocardiogram that revealed preserved LV systolic function with ejection fraction 55%, mitral valve was normal with mild regurgitation. At that time she was on Coreg and lisinopril she has since discontinued. We have been asked to see in consultation for heart failure. She states for the previous 9-10 days she has been noticing increased shortness of breath and some exertional chest discomfort. More specifically at night when she lays down to go to sleep is when she notices she is short of breath and she feels like she is "drowning "she was sent for an outpatient echocardiogram and advice of her PCP yesterday revealing severely impaired LV systolic function with severe mitral regurgitation. Repeat limited study today reveals severely impaired and dilated LV with ejection fraction less than 20%, moderate to severe mitral regurgitation, moderate to severe tricuspid regurgitation and moderate to severe pulmonary hypertension with RVSP of 57 mmHg. 07/28/2020 Patient was seen and examined sitting up in bed in no acute distress. She states for the first time in over a week she slept through the night without f eeling short of breath. She underwent cardiac catheterization yesterday revealing normal coronary arteries. Transesophageal echocardiogram revealed moderate mitral regurgitation secondary to left ventricular dilation, systolic blunting of pulmonary veins consistent with moderate MR. Blood pressure 92/61 heart rate 83 afebrile maintaining oxygen saturation on room air. Laboratory data reviewed, sodium 139, potassium 4.2, creatinine 1.12. PHYSICAL EXAMINATION CONSTITUTIONAL: No apparent distress. HEENT: Head is normocephalic. Pupils are equal, round. Sclerae anicteric. Mucous membranes of the mouth are moist. No JVD. No carotid bruit. CHEST EXAMINATION: Lungs are clear to auscultation. No chest wall tenderness is noted on palpation or with deep breathing. HEART EXAMINATION: Regular rate and rhythm. S1, S2 heard. Soft systolic ejection murmur at the apex, no gallops or rub. EXTREMITIES: 2+ peripheral pulses, no lower extremity edema and no calf tenderness. 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 Discontinue IV diuretics. Continue beta blockers, aldactone and lisinopril as previously ordered. The mitral valve disease is exacerbated by dilated LV and expect some improvement if the dilation improves with medical regimen. Further outpatient serial echocardiograms will be performed. She can be discharged home to follow up with Dr. Rhodes in the office. Importance of cardiac medication adherence discussed in detail with the patient. Nurse Practitioner note has been reviewed, I agree with a documented findings a nd plan of care. Patient was seen and examined. Objective - Vital Signs Vital signs: Vital Signs Temp 98 F 07/28/20 08:20 Pulse 83 07/28/20 08:20 Resp 18 07/28/20 08:20 BP 92/61 07/28/20 08:20 Pulse Ox 95 07/28/20 08:20 Intake & Output 07/27/20 07/28/20 07/28/20 18:59 06:59 18:59 Intake Total 630 10 714 Output Total 400 600 Balance 230 -590 714 Weight 67.8 kg Intake: IV 150 10 0.9 10 Oral 480 714 Output: Urine 400 600 Other: Voiding Method Toilet # Voids 1 - Labs CBC & Chem 7: 07/26/20 19:30 07/28/20 05:56 Labs: Abnormal Lab Results - Last 24 Hours (Table) 07/28/20 Range/Units 05:56 Carbon Dioxide 31 H (22-30) mmol/L Creatinine 1.12 H (0.52-1.04) mg/dL Glucose 100 H (74-99) mg/dL Calcium 7.3 L (8.4-10.2) mg/dL
--- NOTE | 2020-07-28 15:33 | P.DS ---
Providers Date of admission: 07/26/20 20:26 Attending physician: Festus Reardon Consults: 07/26/20 20:16 Consult Physician Stat Consulting Provider: Gaurav Shelton Consult Reason/Comments: Heart failure Do you want consulting provider notified?: Yes Primary care physician: Festus Reardon [facility] Course: 60-year-old female one of my office patient with past medical history of ALLERGY, along with GERD and mild osteoporosis who had also mild depression who developed to have significant shortness of breath for the last few weeks for the last 3 weeks apparently patient was diagnosed with cardiomyopathy about 10 years ago after contracted influenza virus she was taking Coreg and then stopped taking medication completely not taking any diuretics are beta rajendra. Patient presented to the office recently complaining of worsening dyspnea and shortness of breath with exertion she had loud murmur as well was referred for an echocardiogram result came back with ejection fraction of 15-20% only with severe mitral regurgitation. Patient is significantly symptomatic with no explained to why he had recurrent cardiomyopathy this time [facility] will be [facility] seen cardiology and might need further intervention including transesophageal echocardiogram along with possible heart catheter. Patient also started on diuretics with furosemide along with Aldactone mild dose of lisinopril and back on metoprolol. 07/27: Limited echocardiogram performed which revealed EF of less than 20%, mild concentric left ventricular hypertrophy, moderate to severe mitral regurgitation, moderate to severe tricuspid regurgitation, severe pulmonary hypertension. Cardiology evaluated the patient and performed heart catheterization that showed no significant coronary artery disease. Patient has been afebrile, heart rate 85, blood pressure 109/82, pulse ox 95% on room air.: 19 was negative. Repeat troponin 0.020. Patient was started on Lasix 20 mg IV every 8 hours by cardiology. Anticipate monitoring patient overnight and possible discharge in the next 24-48 hours. 07/28: Patient is found sitting up in bed in no acute distress. She is anxious to go home. The patient states that she is not having any shortness of breath was able to sleep through the night. Patient has no bilateral pedal edema noted. She is not coughing. Patient had a TINY yesterday which showed moderate secondary mitral regurgitation secondary to left ventricular dilatation. An EF of 10% with dilated LV. patient to follow with cardiology for optimization of medical therapy and possible AICD if no improvement REVIEW OF SYSTEMS CONSTITUTIONAL: Well-developed no acute respiratory distress. EYES: No icterus sclerae, no conjunctivitis. EARS, NOSE, MOUTH, THROAT, and FACE: No sore throat, lymphadenopathy, carotid bruits or deformity. RESPIRATORY: Mild dyspnea with exertion. Denies shortness of breath at rest. CARDIOVASCULAR: No CP, positive palpitation positive PND orthopnea no angina. GASTROINTESTINAL: No Abd pain, Nausea or vomiting, no Diarrhea or constipation, No GI Bleed, no distention or masses. GENITOURINARY: Negative for Hematuria or UTI, no kidney stones. INTEGUMENT/BREAST: Negative for any muscular injury with mild osteoarthritis.. HEMATOLOGIC/LYMPHATIC: Negative for bleed or purpura. MUSCULOSKELTAL: Negative for Myalgia or arthralgia. Slight edema NEURLOGICAL: No LOC, Sz or syncope, blurred vision dizziness or abnormality.. BEHAVIORAL/PSYCH: Negative. ENDOCRINE: Negative. PHYSICAL EXAMINATION General Appearance: Alert, cooperative, no distress, appears stated age. Patient resting comfortably in bed. No acute distress noted. Neck HEENT: Supple, no lymphadenopathy, no thyroid enlargement, no carotid b ruits. Lungs: Clear to auscultation without crackles or wheezes no rhonchi, no deformity. Chest Wall: Chest wall normal expansion with deep inspiration no tenderness and no deformity was found on exam, no costochondral pain or discomfort. Heart: IRRegular rate and rhythm, S1, S2 normal, without murmur heard in the attacks along with the left second coastal space. Abdomen: Soft, non-tender, bowel sounds active all four quadrants, no masses, no organomegaly. Extremities: Extremities normal, atraumatic, no cyanosis or edema. Pulses: 2+ and symmetric. ASSESSMENT AND PLAN 1 acute nonischemic severe cardiomyopathy with acute systolic heart failure 2 Moderatevalvular heart disease 3 mild tachycardiaded. 4 hyperglycemia: 5 severe dyspnea sec to acute systolic heart failure Patient Condition at Discharge: Stable Plan - Discharge Summary Discharge Rx Participant: No New Discharge Prescriptions: New Spironolactone [Aldactone] 12.5 mg PO DAILY #30 tab Metoprolol Tartrate [Lopressor] 12.5 mg PO BID #60 tab lisinopriL [Zestril] 5 mg PO DAILY #30 tab Continue Calcium 1200mg + Vitamin D3 1000units 1 tab PO DAILY Fexofenadine/Pseudoephedrine [Anitra-D 12 Hour Tablet] 1 tab PO DAILY FLUoxetine HCL [PROzac] 20 mg PO DAILY Omeprazole Magnesium [PriLOSEC OTC] 20 mg PO DAILY Discharge Medication List Calcium 1200mg + Vitamin D3 1000units 1 tab PO DAILY 07/26/20 [History] FLUoxetine HCL [PROzac] 20 mg PO DAILY 07/26/20 [History] Fexofenadine/Pseudoephedrine [Anitra-D 12 Hour Tablet] 1 tab PO DAILY 07/26/20 [History] Omeprazole Magnesium [PriLOSEC OTC] 20 mg PO DAILY 07/26/20 [History] Metoprolol Tartrate [Lopressor] 12.5 mg PO BID #60 tab 07/28/20 [Rx] Spironolactone [Aldactone] 12.5 mg PO DAILY #30 tab 07/28/20 [Rx] lisinopriL [Zestril] 5 mg PO DAILY #30 tab 07/28/20 [Rx] Follow up Appointment(s)/Referral(s): Festus Reardon MD [Primary Care Provider] - 1-2 days Discharge Disposition: HOME SELF-CARE
[2020-07-30 12:34] LABS: Parvovirus B-19 IgG Antibodies 3.17 INDEX (<=0.90); Parvovirus B-19 IgM Antibodies 0.09 INDEX (<=0.90)
== END 2020-07-28 18:17 | disposition home or self-care (01) ==
LOC: EC 18:45 → 3SCARD 20:26
PROVIDERS: ADMIT Internal Medicine Geriatric Medicine; ATTEND Internal Medicine Geriatric Medicine
DX: I50.21 Acute systolic (congestive) heart failure (principal); I08.1 Rheumatic disorders of both mitral and tricuspid valves; R93.1 Abnormal findings on diagnostic imaging of heart and coronary circulation; R00.0 Tachycardia, unspecified; R94.31 Abnormal electrocardiogram [ECG] [EKG]; E83.51 Hypocalcemia; I42.0 Dilated cardiomyopathy; R73.9 Hyperglycemia, unspecified; I27.20 Pulmonary hypertension, unspecified; K21.9 Gastro-esophageal reflux disease without esophagitis; M81.0 Age-related osteoporosis without current pathological fracture; F32.9 Major depressive disorder, single episode, unspecified; T44.7X6A Underdosing of beta-adrenoreceptor antagonists, initial encounter; Z79.899 Other long term (current) drug therapy; Z88.2 Allergy status to sulfonamides; W01.0XXA Fall on same level from slipping, tripping and stumbling without subsequent striking against object, initial encounter; Z20.828 Contact with and (suspected) exposure to other viral communicable diseases
CPT/HCPCS: 96365; 99285; 36415; 93005; 93308; 93312; 93320; 93325; 93458; 86747 ×2; 83880; 80053; 80048; 83735; 84484 ×2; 85025; 86658; 85610; 85730; 87635; 71046; G0378 ×3; C1769 ×4; C1894 ×2; J2250; J1940 ×2; J2001; J1650 ×2; J3010; J0610; Q9967

== ENCOUNTER → 2021-05-16 | Outpatient (CLI) | payer BC ==
[2021-05-16 16:16] LABS: Basophils # (A) 0.07 X 10*3/uL (0.00-0.10); Basophils % (A) 1.1 %; Eosinophils # (A) 0.13 X 10*3/uL (0.04-0.35); HCT 38.5 % (37.2-46.3); HGB 11.8 g/dL (12.0-15.0); Lymphocytes # (A) 1.88 X 10*3/uL (0.90-5.00); Lymphocytes % (A) 29.3 %; MCH 29.4 pg (27.0-32.0); MCHC 30.6 g/dL (32.0-37.0); Mean Platelet Volume 10.3 fL (9.5-12.2); Monocytes # (A) 0.48 X 10*3/uL (0.20-1.00); Monocytes % (A) 7.5 %; Neutrophils # (A) 3.84 X 10*3/uL (1.80-7.70); Neutrophils % (A) 59.9 %; Platelet Count 292 X 10*3/uL (140-440); RBC 4.01 X 10*6/uL (4.10-5.20); RDW 13.3 % (11.5-14.5); WBC 6.41 X 10*3/uL (4.50-10.00)
[2021-05-17 01:02] LABS: African American GFR (CKD) 51.3 (60.0-200.0); Albumin 4.5 g/dL (3.8-4.9); Albumin/Globulin Ratio 1.6 (1.60-3.17); Anion Gap 12.2 mmol/L (4.00-12.00); BUN/Creat Ratio 10.69 Ratio (12.00-20.00); Blood Urea Nitrogen 13.9 mg/dL (9.0-27.0); Carbon Dioxide 23.6 mmol/L (21.6-31.8); Chol/HDL Ratio 5.97 Ratio; Globulin 2.8 g/dL (1.6-3.3); HDL Cholesterol 35.2 mg/dL (40.00-60.00); LDL Cholesterol,Calculated 150.2 mg/dL (0.0-131.0); Non-African American GFR(CKD) 44.2 (60.0-200.0); T4, Free (Free Thyroxine) 0.86 ng/dL (0.800-1.800); Total Bilirubin 0.3 mg/dL (0.30-1.20); Total Protein 7.3 g/dL (6.2-8.2); VLDL Calculation 24.6 mg/dL (5.00-40.00)
== END | disposition home or self-care (01) ==
LOC: LABWHC1 08:34
PROVIDERS: ATTEND Internal Medicine Geriatric Medicine
DX: I42.9 Cardiomyopathy, unspecified (principal); E31.21 Multiple endocrine neoplasia [MEN] type I
CPT/HCPCS: 36415; 80053; 80061; 83036; 83970; 84439; 84443; 85025